=== PATIENT | female | born 1940 | race African-American/Black ===

== ENCOUNTER → 2017-05-01 | Outpatient (CLI) | payer MEDICARE, OTHER | END | disposition home or self-care (01) | LOC: RADPV 15:16 | PROVIDERS: ATTEND Legal Medicine | DX: J44.9 Chronic obstructive pulmonary disease, unspecified (principal); I51.7 Cardiomegaly; I70.0 Atherosclerosis of aorta | CPT/HCPCS: 71020 ==

== ENCOUNTER → 2018-02-10 | Outpatient (CLI) | payer MEDICARE, OTHER | END | disposition home or self-care (01) | LOC: RADPV 14:04 | PROVIDERS: ATTEND Legal Medicine | DX: I70.0 Atherosclerosis of aorta (principal); R06.00 Dyspnea, unspecified ==

== ENCOUNTER 2018-03-11 05:22 | Emergency (ER) | payer MEDICARE, OTHER ==
[~2018-03-11] VITALS: Ht 157.5 cm; Wt 48.6 kg
[2018-03-11] MEDS ORDERED: HYDR25TA84 PO (05:48)
[2018-03-11] MEDS ORDERED: CLON.2 PO (05:48)
[2018-03-11] MEDS ORDERED: ATOR20TA86 PO (05:48)
[2018-03-11] MEDS ORDERED: ADV100 IH (05:48)
[2018-03-11] MEDS ORDERED: ATENOLOL PO (05:48)
[2018-03-11] MEDS ORDERED: ASPI81TA39 PO (05:48)
[2018-03-11] MEDS ORDERED: OxyCODONE HCL/ACETAMINOPHEN 5-325 MG TABLET PO ONE (07:00)
[2018-03-11 07:10] VITALS: BP 132/84
== END 2018-03-11 07:20 | disposition home or self-care (01) ==
LOC: EMS 05:22
DX: S20.211A Contusion of right front wall of thorax, initial encounter (principal); J44.9 Chronic obstructive pulmonary disease, unspecified; J93.9 Pneumothorax, unspecified; I10 Essential (primary) hypertension; Z79.899 Other long term (current) drug therapy; Z79.82 Long term (current) use of aspirin; Z86.73 Personal history of transient ischemic attack (TIA), and cerebral infarction without residual deficits; Z90.710 Acquired absence of both cervix and uterus; W19.XXXA Unspecified fall, initial encounter; Y93.89 Activity, other specified; Y92.89 Other specified places as the place of occurrence of the external cause; Y99.8 Other external cause status
CPT/HCPCS: 99284

== ENCOUNTER → 2018-05-22 | Outpatient (CLI) | payer MEDICARE, OTHER ==
[~2018-05-22] MED LIST: ADV100 IH; ASPI81TA39 PO; ATENOLOL PO; ATOR20TA86 PO; CLON.2 PO; HYDR25TA84 PO
== END | disposition home or self-care (01) ==
LOC: RADPV 10:59
PROVIDERS: ATTEND Legal Medicine
DX: J18.9 Pneumonia, unspecified organism (principal)

== ENCOUNTER → 2019-08-06 | Outpatient (CLI) | payer MEDICARE, OTHER ==
[~2019-08-06] MED LIST changes: -CLON.2 PO; +CLON0.2T2 PO
== END | disposition home or self-care (01) ==
LOC: RADPV 13:55
PROVIDERS: ATTEND Legal Medicine
DX: J44.9 Chronic obstructive pulmonary disease, unspecified (principal); J98.11 Atelectasis; I70.0 Atherosclerosis of aorta; Q25.46 Tortuous aortic arch; M43.8X4 Other specified deforming dorsopathies, thoracic region

== ENCOUNTER → 2019-08-19 | Outpatient (CLI) | payer MEDICARE, OTHER ==
[~2019-08-19] MED LIST changes: +BARIUM SULFATE 0.1% SUSPENSION 450 ML BOTTLE ONE; +IOVERSOL 350 MG/ML 100 ML VIAL ONE; +SODIUM CHLORIDE 0.9% 100 ML ONE
== END | disposition home or self-care (01) ==
LOC: RADMN 08:27
PROVIDERS: ATTEND Legal Medicine
DX: J18.9 Pneumonia, unspecified organism (principal); J43.9 Emphysema, unspecified; I77.810 Thoracic aortic ectasia
CPT/HCPCS: 71260; J7050; Q9967

== ENCOUNTER → 2019-08-27 | Outpatient (CLI) | payer MEDICARE, OTHER ==
[~2019-08-27] MED LIST changes: -BARIUM SULFATE 0.1% SUSPENSION 450 ML BOTTLE ONE; +IOVERSOL 320 MG/ML 100 ML VIAL ONE; -IOVERSOL 350 MG/ML 100 ML VIAL ONE
== END | disposition home or self-care (01) ==
LOC: RADMN 08:31
PROVIDERS: ATTEND Legal Medicine
DX: R63.4 Abnormal weight loss (principal)
CPT/HCPCS: 74177; J7050; Q9967

== ENCOUNTER → 2020-01-27 | Outpatient (CLI) | payer MEDICARE, OTHER ==
[~2020-01-27] MED LIST changes: -IOVERSOL 320 MG/ML 100 ML VIAL ONE; -SODIUM CHLORIDE 0.9% 100 ML ONE
== END | disposition home or self-care (01) ==
LOC: RADMN 13:18
PROVIDERS: ATTEND Internal Medicine Pulmonary Disease
DX: R91.1 Solitary pulmonary nodule (principal); D18.1 Lymphangioma, any site; J84.81 Lymphangioleiomyomatosis; J43.2 Centrilobular emphysema
CPT/HCPCS: 71250

== ENCOUNTER 2020-04-13 07:20 | Day surgery (SDC) | payer MEDICARE, OTHER ==
[2020-04-11 12:23] LABS: COVID AG,FIA SOURCE NASOPHARYNGEAL
[~2020-04-13] VITALS: Ht 157.5 cm; Wt 46.8 kg
[~2020-04-13 07:20] MED LIST changes: +RINGERS SOLUTION,LACTATED 500 ML IV ONE
[2020-04-13] MEDS ORDERED: POVIDONE-IODINE 10% 15 ML SOLUTION UD TP ONE (07:21)
[2020-04-13] MEDS ORDERED: HYALURONATE SOD/CHONDROITIN SOD 0.5 ML VIAL IO ONE (07:21)
[2020-04-13] MEDS ORDERED: EPINEPHrine 1:1,000 [1 MG/ML] AMP ET ONE (07:21)
[2020-04-13] MEDS ORDERED: HYALURONATE SODIUM 12 MG/ML 0.8 ML SYRINGE IO ONE (07:21)
[2020-04-13] MEDS ORDERED: LIDOCAINE/PF 1% 2 ML VIAL IM ONE (07:21)
[2020-04-13] MEDS ORDERED: FentaNYL CITRATE-PF 100 MCG/2 ML VIAL IVP ONE (07:21)
[2020-04-13] MEDS ORDERED: BALANCED SALT 15 ML OPHTHALMIC IRRIG.SOLN IO ONE (07:21)
[2020-04-13] MEDS ORDERED: TETRACAINE HCL VISCOUS 0.5% 5 ML OPHTHALMIC SOLUTION OU ONE (07:21)
[2020-04-13] MEDS ORDERED: MIDAZOLAM HCL 2 MG/2 ML VIAL IVP ONE (07:21)
[2020-04-13] MEDS ORDERED: KETOROLAC TROMETHAMINE 0.5% 5 ML OPHTHALMIC SOLUTION ONE (07:34)
[2020-04-13] MEDS ORDERED: MOXIFLOXACIN HCL 0.5% 3 ML OPHTHALMIC SOLUTION ONE (07:34)
[2020-04-13] MEDS ORDERED: TROPICAMIDE 1% 2 ML OPHTHALMIC SOLUTION ONE (07:34)
[2020-04-13] MEDS ORDERED: PHENYLEPHRINE HCL 2.5% 2 ML OPHTHALMIC SOLUTION ONE (07:34)
[2020-04-13] MEDS ORDERED: RINGERS SOLUTION,LACTATED 500 ML IV ONE (07:34)
[2020-04-13] MEDS: PHENYLEPHRINE HCL 2.5% 2 ML OPHTHALMIC SOLUTION OS SCH ×3 (08:54→09:16)
[2020-04-13] MEDS: KETOROLAC TROMETHAMINE 0.5% 5 ML OPHTHALMIC SOLUTION OS SCH ×3 (08:54→09:16)
[2020-04-13] MEDS: TROPICAMIDE 1% 2 ML OPHTHALMIC SOLUTION OS SCH ×3 (08:54→09:16)
[2020-04-13] MEDS: MOXIFLOXACIN HCL 0.5% 3 ML OPHTHALMIC SOLUTION OS SCH ×3 (08:54→09:16)
[2020-04-13] MEDS ORDERED: ALPR0.255 PO (10:17)
[2020-04-13] MEDS ORDERED: ATEN100T92 PO (10:17)
[2020-04-13] MEDS ORDERED: HYDR25TA84 PO (10:17)
[2020-04-13] MEDS ORDERED: LOSA50TA37 PO ×2 (10:17)
[2020-04-13] MEDS ORDERED: ATOR40TA28 PO (10:17)
[2020-04-13] MEDS ORDERED: DIPH25CA85 PO (10:17)
[2020-04-13] MEDS ORDERED: LIB5 PO (10:17)
[2020-04-13] MEDS ORDERED: ALBU8.5H8 IH (10:17)
[2020-04-13] MEDS ORDERED: AMLO-257 PO (10:17)
[2020-04-13] MEDS ORDERED: TIOT185 IH (10:17)
== END 2020-04-13 11:50 | disposition home or self-care (01) ==
LOC: SURGERY 07:20
PROVIDERS: ATTEND Ophthalmology
DX: H25.12 Age-related nuclear cataract, left eye (principal); Z79.899 Other long term (current) drug therapy; J44.9 Chronic obstructive pulmonary disease, unspecified; I10 Essential (primary) hypertension; Z20.828 Contact with and (suspected) exposure to other viral communicable diseases
CPT/HCPCS: 66984; 87426; 93005; C9803; J0171; J2250; J3010; J3490 ×2; J7120; V2632

== ENCOUNTER 2020-04-27 08:31 | Day surgery (SDC) | payer MEDICARE, OTHER ==
[2020-04-25 12:52] LABS: COVID AG,FIA SOURCE NASOPHARYNGEAL
[~2020-04-27] VITALS: Ht 157.5 cm; Wt 47.5 kg
[~2020-04-27 08:31] MED LIST changes: -ADV100 IH; +ALBU8.5H8 IH; +ALPR0.255 PO; +AMLO-257 PO; -ASPI81TA39 PO; +ATEN100T92 PO; -ATENOLOL PO; -ATOR20TA86 PO; +ATOR40TA28 PO; -CLON0.2T2 PO; +DIPH25CA85 PO; +LIB5 PO; +LOSA50TA37 PO; -RINGERS SOLUTION,LACTATED 500 ML IV ONE; +TIOT185 IH
[2020-04-27] MEDS ORDERED: HYALURONATE SODIUM 12 MG/ML 0.8 ML SYRINGE IO ONE (08:32)
[2020-04-27] MEDS ORDERED: EPINEPHrine 1:1,000 [1 MG/ML] AMP IM ONE (08:32)
[2020-04-27] MEDS ORDERED: FentaNYL CITRATE-PF 100 MCG/2 ML VIAL IVP ONE (08:32)
[2020-04-27] MEDS ORDERED: HYALURONATE SOD/CHONDROITIN SOD 0.5 ML VIAL IO ONE (08:32)
[2020-04-27] MEDS ORDERED: LIDOCAINE/PF 1% 2 ML VIAL IM ONE (08:32)
[2020-04-27] MEDS ORDERED: MIDAZOLAM HCL 2 MG/2 ML VIAL IVP ONE (08:32)
[2020-04-27] MEDS ORDERED: POVIDONE-IODINE 10% 15 ML SOLUTION UD TP ONE (08:32)
[2020-04-27] MEDS ORDERED: TETRACAINE HCL/PF 0.5% 4 ML OPHTHALMIC SOLUTION OU ONE (08:32)
[2020-04-27] MEDS ORDERED: RINGERS SOLUTION,LACTATED 500 ML IV ONE ×2 (08:46→09:00)
[2020-04-27] MEDS ORDERED: TROPICAMIDE 1% 2 ML OPHTHALMIC SOLUTION ONE (08:47)
[2020-04-27] MEDS ORDERED: KETOROLAC TROMETHAMINE 0.5% 5 ML OPHTHALMIC SOLUTION ONE (08:47)
[2020-04-27] MEDS ORDERED: MOXIFLOXACIN HCL 0.5% 3 ML OPHTHALMIC SOLUTION ONE (08:47)
[2020-04-27] MEDS ORDERED: PHENYLEPHRINE HCL 2.5% 2 ML OPHTHALMIC SOLUTION ONE (08:47)
[2020-04-27] MEDS: TROPICAMIDE 1% 2 ML OPHTHALMIC SOLUTION OD SCH ×3 (09:26→09:37)
[2020-04-27] MEDS: PHENYLEPHRINE HCL 2.5% 2 ML OPHTHALMIC SOLUTION OD SCH ×3 (09:26→09:37)
[2020-04-27] MEDS: KETOROLAC TROMETHAMINE 0.5% 5 ML OPHTHALMIC SOLUTION OD SCH ×3 (09:26→09:37)
[2020-04-27] MEDS: MOXIFLOXACIN HCL 0.5% 3 ML OPHTHALMIC SOLUTION OD SCH ×3 (09:27→09:37)
[2020-04-27] MEDS ORDERED: FentaNYL CITRATE-PF 100 MCG/2 ML VIAL IVP PRN (10:30)
[2020-04-27] MEDS ORDERED: HYDROmorphone 2 MG/ML SYRINGE IVP PRN (10:30)
[2020-04-27] MEDS ORDERED: MEPERIDINE-PF 25 MG/ML VIAL IVP PRN (10:30)
[2020-04-27] MEDS ORDERED: OXYGEN THERAPY IH SCH (10:30)
== END 2020-04-27 11:15 | disposition home or self-care (01) ==
LOC: SURGERY 08:31
PROVIDERS: ATTEND Ophthalmology
DX: H25.11 Age-related nuclear cataract, right eye (principal); J44.9 Chronic obstructive pulmonary disease, unspecified; E78.5 Hyperlipidemia, unspecified; I10 Essential (primary) hypertension; Z86.73 Personal history of transient ischemic attack (TIA), and cerebral infarction without residual deficits; Z79.899 Other long term (current) drug therapy; Z90.710 Acquired absence of both cervix and uterus
CPT/HCPCS: 66984; 87426; 93005; C9803; J0171; J2250; J3010; J3490 ×2; J7120; V2632